=== PATIENT | male | born 1965 | race Caucasian/White ===

== ENCOUNTER 2021-12-15 06:32 | Emergency (ER) | payer BC ==
[~2021-12-15] VITALS: Ht 177.8 cm; Wt 113.6 kg
--- NOTE | 2021-12-15 06:57 | NUR ---
PT FELT DIZZY WITH POSITION CHANGE AND PAIN AND BROUGHT HIM BACK TO TRIAGE ROOM NOTIFIED CHARGE MICHAEL AND PLACED IN ROOM 4.
[2021-12-15] MEDS ORDERED: normal saline 1000ML IV soln IVB ONE (07:10)
[2021-12-15] MEDS ORDERED: ketorolac trometh. 30mg/ml inj. IV ONE (07:10)
[2021-12-15] MEDS ORDERED: meperidine/PF 50mg/ml syringe IV ONE (07:45)
[2021-12-15] MEDS ORDERED: sildenafil citrate 20mg tablet PO SCH (08:00)
[2021-12-15 08:23] LABS: BASOPHILS # (AUTO) 0.1 X10'3 (0-0.2); BASOPHILS % (AUTO) 0.7 % (0-1); EOSINOPHILS # (AUTO) 0.1 X10'3 (0-0.9); EOSINOPHILS % (AUTO) 1.6 % (0-6); HEMATOCRIT 48.8 % (42.0-52.0); LYMPHOCYTES # (AUTO) 1.9 X10'3 (1.1-4.8); MEAN CORPUSCULAR HEMOGLOBIN 33.2 PG (27.0-31.0); MEAN CORPUSCULAR HGB CONC 34.8 g/dL (33.0-36.5); MEAN CORPUSCULAR VOLUME 95.4 FL (78-98); MEAN PLATELET VOLUME 9.9 FL (7.4-10.4); MONOCYTES # (AUTO) 0.5 X10'3 (0-0.9); MONOCYTES % (AUTO) 5.8 % (2-12); NEUTROPHILS # (AUTO) 5.4 X10'3 (1.8-7.7); NEUTROPHILS % (AUTO) 67.9 % (42-75); PLATELET COUNT 234 X10'3 (140-440); RED BLOOD COUNT 5.11 X10'6 (4.70-6.10); RED CELL DISTRIBUTION WIDTH 13.5 % (11.5-14.5)
[2021-12-15 08:55] LABS: ALANINE AMINOTRANSFERASE 32 U/L (12-78); ALBUMIN 4.8 G/DL (3.4-5.0); ALBUMIN/GLOBULIN RATIO 1.3 (1.1-1.5); ALKALINE PHOSPHATASE 59 IU/L (46-116); ANION GAP 14 (8-16); ASPARTATE AMINO TRANSFERASE 15 U/L (10-37); BILIRUBIN,TOTAL 0.7 MG/DL (0.1-1.0); BLOOD UREA NITROGEN 21 MG/DL (7-18); CALCIUM 9.3 MG/DL (8.5-10.1); CHLORIDE 105 MMOL/L (99-107); CREATININE 1.61 MG/DL (0.60-1.10); GLUCOSE 156 MG/DL (70-104); LIPASE 102 U/L (73-393); POTASSIUM 3.8 MMOL/L (3.5-5.1); SODIUM 141 MMOL/L (135-145); TOTAL PROTEIN 8.4 G/DL (6.4-8.2); eGFR 44 ML/MIN
[2021-12-15 10:38] LABS: CLARITY,URINE CLEAR (Clear); COLOR,URINE YELLOW (Yellow); GLUCOSE, URINE NEGATIVE (Neg); KETONES,URINE NEGATIVE (Neg); LEUKOCYTE ESTERASE ,URINE NEGATIVE (Neg); NITRITES, URINE NEGATIVE (Neg); OCCULT BLOOD,URINE LARGE (Neg); PROTEIN,URINE TRACE mg/dl (Neg); UROBILINOGEN,URINE 0.2 E.U/dL (0.2-1.0)
[2021-12-15 10:41] LABS: UA COLLECTION TYPE CLN CATCH MIDSTREAM
[2021-12-15 10:43] LABS: BACTERIA,URINE NONE SEEN /HPF (Neg); MUCUS STRANDS NONE SEEN /LPF (Neg); SQUAMOUS EPITHELIAL CELL,UR FEW /LPF (FEW); WBC,URINE NONE SEEN /HPF (0-4)
[2021-12-15 11:37] VITALS: BP 135/85
== END 2021-12-15 11:40 | disposition home or self-care (01) ==
LOC: ER 08:53
DX: N18.9 Chronic kidney disease, unspecified (principal); N23 Unspecified renal colic; R11.2 Nausea with vomiting, unspecified; F17.200 Nicotine dependence, unspecified, uncomplicated; R33.9 Retention of urine, unspecified; Z87.442 Personal history of urinary calculi; Z72.89 Other problems related to lifestyle; Z88.1 Allergy status to other antibiotic agents; Z88.8 Allergy status to other drugs, medicaments and biological substances
CPT/HCPCS: 36415; 80053; 81001; 83690; 85025; 96361; 96374; 96375; 99284; J1885; J2175; J7030